=== PATIENT | male | born 1950 ===

== ENCOUNTER 2018-10-07 06:28 | Day surgery (SDC) | payer BC, MEDICARE ==
[~2018-10-07 06:28] MED LIST: Acetaminophen TAB* 325 MG PO PRN; Buffered Lidocaine 1% SYRIN* 1 ML/SYRINGE INTRADERM ONE; mitoMYcin 0.2 MG (0.02%) in Sterile Water for Inj* 1 ML OPHTHALMIC SCH
[2018-10-07] MEDS ORDERED: fentaNYL* 50 MCG/ML 2 ML VIAL (100 MCG VIAL) ONE (07:18)
[2018-10-07] MEDS ORDERED: Midazolam* 1 MG/ML 2 ML VIAL (2 MG) ONE (07:18)
[2018-10-07 07:58] VITALS: BP 141/75
--- NOTE | 2018-10-07 08:44 | OP ---
AMENDED REPORT NOW INCLUDES DATE OF OPERATION - ESIGNED BEFORE ADJUSTMENT * DATE OF OPERATION: 10/07/18 - [facility] DATE OF : 50 SURGEON: Roni Torres MD ANESTHESIA: Local MAC. PRE-OP DIAGNOSIS: Open angle glaucoma, right eye. POST-OP DIAGNOSIS: Open angle glaucoma, right eye. OPERATIVE PROCEDURE: XEN stent, right eye. COMPLICATIONS: None. DESCRIPTION OF PROCEDURE: The patient was prepped and draped in the usual sterile fashion. Topical 2% lidocaine with epinephrine placed. A paracentesis was made at the 10 o'clock position with a 75 blade. Anterior chamber irrigated with 1% non- preservative intracameral lidocaine followed by ProVisc. A 1.8 mm clear corneal incision was made at the 7 o'clock position. The XEN stent placed subconjunctivally at the 1 o'clock position. However, there was some flick at the end of the insertion because of some patient movement and it was felt to be too long in the anterior chamber. I decided to remove that with a forceps and then replace it with a new stent that was inserted without difficulty. The anterior chamber was then irrigated with balanced salt solution. Mitomycin C 0.2 mg/mL 0.1 mL was injected near the tip of the stent and then the anterior chamber re- irrigated with balanced salt solution with good bleb development. [id number]/[facility] #: [id number] [facility]
[2018-10-07] MEDS ORDERED: Neomycin/Polymy/Dex OPTH.SUSP* MAXITROL 0.1% 5 ML ONE (09:29)
[2018-10-07] MEDS ORDERED: Povidone Iodine 5% OPTH* 30 ML BTL ONE (09:29)
[2018-10-07] MEDS ORDERED: Proparacaine 0.5% OPHTH.SOL* 15 ML BTL ONE (09:29)
[2018-10-07] MEDS ORDERED: Lidocaine 1%* 5 ML VIAL ONE (09:29)
[2018-10-07] MEDS ORDERED: Lidocaine 2% EPI 1:200000 MPF*10-20 ML VIAL ONE (09:29)
== END 2018-10-07 08:04 | disposition home or self-care (01) ==
LOC: OREAST 06:28
PROVIDERS: ATTEND Specialist
DX: H40.1112 Primary open-angle glaucoma, right eye, moderate stage (principal); H35.3132 Nonexudative age-related macular degeneration, bilateral, intermediate dry stage; J44.9 Chronic obstructive pulmonary disease, unspecified; I10 Essential (primary) hypertension; E78.5 Hyperlipidemia, unspecified; G47.33 Obstructive sleep apnea (adult) (pediatric); E11.9 Type 2 diabetes mellitus without complications
CPT/HCPCS: A9270-GY; C1725; J2250; J3010; J9280

== ENCOUNTER 2018-10-14 06:32 | Day surgery (SDC) | payer BC, MEDICARE ==
[~2018-10-14 06:32] MED LIST changes: -mitoMYcin 0.2 MG (0.02%) in Sterile Water for Inj* 1 ML OPHTHALMIC SCH; +mitoMYcin 0.2 MG (0.02%) in Sterile Water for Inj* 1 ML SCH
[2018-10-14] MEDS ORDERED: Midazolam* 1 MG/ML 2 ML VIAL (2 MG) ONE (07:35)
[2018-10-14 08:57] VITALS: BP 146/77
--- NOTE | 2018-10-14 11:12 | OP ---
Amended report to enter date of operation. OPERATIVE NOTE: DATE OF OPERATION: 10/14/18 DATE OF : 50 SURGEON: Roni Torres MD ANESTHESIA: Local MAC. PRE-OP DIAGNOSIS: Open angle glaucoma, left eye. POST-OP DIAGNOSIS: Open angle glaucoma, left eye. OPERATIVE PROCEDURE: Insertion XEN stent, left eye. COMPLICATIONS: None. DESCRIPTION OF PROCEDURE: The patient was prepped and draped in the usual sterile fashion. Lid speculum was placed in the left eye. Paracentesis was made at the 1 o'clock position with a 75 blade. A 1% non-preservative intracameral lidocaine using to the anterior chamber followed by ProVisc. A 1.8 mm clear corneal incision was made with the keratome at the 5 o'clock position. XEN stent placed at 1 o'clock without difficulty using its shooter. Mitomycin C 0.2 mg/mL was placed subconjunctivally in the area of the XEN stent. Anterior chamber irrigated using balanced salt solution. [id number]/[facility] #: [id number] [facility]
== END 2018-10-14 08:20 | disposition home or self-care (01) ==
LOC: OREAST 06:32
PROVIDERS: ATTEND Specialist
DX: H40.1122 Primary open-angle glaucoma, left eye, moderate stage (principal); E11.9 Type 2 diabetes mellitus without complications; Z87.891 Personal history of nicotine dependence; J44.9 Chronic obstructive pulmonary disease, unspecified; I10 Essential (primary) hypertension; I65.29 Occlusion and stenosis of unspecified carotid artery; E78.00 Pure hypercholesterolemia, unspecified; R42 Dizziness and giddiness; G47.33 Obstructive sleep apnea (adult) (pediatric)
CPT/HCPCS: C1725; J2250; J9280